=== PATIENT | female | born 1995 | race Caucasian/White ===

== ENCOUNTER → 2016-10-30 | Outpatient (REF) | payer OTHER | LOC: M LAB REF 19:00 | PROVIDERS: ATTEND Physician Assistant | DX: J02.9 Acute pharyngitis, unspecified (principal); R05 Cough ==

== ENCOUNTER → 2019-01-26 | Outpatient (REF) | payer OTHER | LOC: M LAB REF 14:56 | PROVIDERS: ATTEND Physician Assistant | DX: J02.9 Acute pharyngitis, unspecified (principal) ==

== ENCOUNTER → 2019-06-05 | Outpatient (REF) | payer OTHER ==
[2019-06-05 15:04] LABS: INFLUENZA A AMPLIFICATION NEGATIVE (NEGATIVE); INFLUENZA B AMPLIFICATION POSITIVE (NEGATIVE)
== END ==
LOC: M LAB REF 12:51
PROVIDERS: ATTEND Physician Assistant
DX: J11.1 Influenza due to unidentified influenza virus with other respiratory manifestations (principal)

== ENCOUNTER → 2020-08-24 | Outpatient (CLI) | payer OTHER ==
[2020-08-24 15:51] LABS: HEMATOCRIT 38.9 % (36.0-47.0); HEMOGLOBIN 11.9 g/dl (12.0-15.5); MEAN CORPUSCULAR HEMOGLOBIN 25.4 pg (27.0-33.0); MEAN CORPUSCULAR HGB CONC 30.6 g/dl (32.0-36.5); MEAN CORPUSCULAR VOLUME 82.9 fl (80.0-96.0); PLATELET COUNT, AUTOMATED 507 10^3/uL (150-450); RED BLOOD COUNT 4.69 10^6/uL (4.00-5.40); WHITE BLOOD COUNT 5.1 10^3/uL (4.0-10.0)
[2020-08-24 16:19] LABS: ALBUMIN 3.3 GM/DL (3.2-5.2); ALT/SGPT 15 U/L (12-78); BILIRUBIN,TOTAL 0.2 MG/DL (0.2-1.0); BLOOD UREA NITROGEN 16 MG/DL (7-18); CALCIUM LEVEL 9.3 MG/DL (8.5-10.1); CARBON DIOXIDE LEVEL 31 MEQ/L (21-32); CHLORIDE LEVEL 102 MEQ/L (98-107); CREATININE FOR GFR 0.64 MG/DL (0.55-1.30); GLOMERULAR FILTRATION RATE > 60.0 (>60); GLUCOSE, FASTING 92 MG/DL (70-100); POTASSIUM SERUM 4.1 MEQ/L (3.5-5.1); SODIUM LEVEL 138 MEQ/L (136-145); TOTAL PROTEIN 7.1 GM/DL (6.4-8.2)
[2020-08-24 16:41] LABS: ERYTHROCYTE SEDIMENTATION RATE 37 mm/hr (0-20)
== END ==
LOC: M WUC 11:49
PROVIDERS: ATTEND Internal Medicine Gastroenterology
DX: K50.90 Crohn's disease, unspecified, without complications (principal); D64.9 Anemia, unspecified

== ENCOUNTER → 2020-09-10 | Outpatient (CLI) | payer OTHER ==
[~2020-09-10] MED LIST: GASTROGRAFIN SOLUTION 30ML (Q9963) As Ordered ONE
--- NOTE | 2020-09-10 16:36 | REP ---
INDICATION: CROHN'S COMPARISON: None TECHNIQUE: Axial noncontrast images from the lung bases to the pubic symphysis with coronal and sagittal reformations. Oral contrast administered prior to imaging. This CT examination was performed using the following dose reduction techniques: Automated exposure control, adjustment of mA and/or kv according to the patient's size, and use of iterative reconstruction technique. FINDINGS: Right lower quadrant demonstrates mucosal thickening and irregularity involving the distal and terminal ileum. The base of the appendix is fluid-filled and distended extending cranially towards a 5 cm irregular soft tissue/phlegmonous collection with surrounding inflammatory stranding most suspicious for recent appendicitis and appendiceal abscess formation (series 201; images 85-110). These findings are also inseparable from the right adnexa which may be secondarily involved and less likely primary focus of pathology. Remainder of the small and large bowel is grossly unremarkable. Liver, spleen, pancreas, gallbladder, bilateral adrenal glands and kidneys are normal by noncontrast evaluation. Further evaluation of the pelvis demonstrates normal bladder and age-appropriate uterus/left adnexa. No ascites. No free air. No definite adenopathy. Musculoskeletal structures are intact. Lung bases are clear. IMPRESSION: 1. Pathologic findings in the right lower quadrant consistent with Crohn's disease of the distal/terminal ileum and suspected recent appendicitis with appendiceal abscess formation. 2. Right adnexa is inseparable from the above-mentioned findings. <Electronically signed by Tobi Francisco > 09/10/20 [id number]
== END ==
LOC: M RAD 08:51
PROVIDERS: ATTEND Internal Medicine Gastroenterology
DX: D64.9 Anemia, unspecified (principal); R10.32 Left lower quadrant pain; R10.13 Epigastric pain; K50.10 Crohn's disease of large intestine without complications; K60.2 Anal fissure, unspecified; K62.89 Other specified diseases of anus and rectum; Z31.69 Encounter for other general counseling and advice on procreation

== ENCOUNTER → 2020-10-19 | Outpatient (CLI) | payer OTHER | LOC: M LAB 16:01 | PROVIDERS: ATTEND Registered Nurse | DX: R19.7 Diarrhea, unspecified (principal) ==

== ENCOUNTER → 2020-10-20 | Outpatient (REF) | payer OTHER ==
[2020-10-21 18:48] LABS: CLOSTRIDIUM DIFFICILE PCR NEGATIVE (NEGATIVE)
== END ==
LOC: M LAB REF 15:30
PROVIDERS: ATTEND Registered Nurse
DX: R19.7 Diarrhea, unspecified (principal)

== ENCOUNTER 2020-12-29 09:48 | Outpatient (CLI) | payer OTHER ==
[~2020-12-29] VITALS: Ht 157.5 cm; Wt 57.0 kg
[2020-12-29] VITALS (9 sets, daily range): BP systolic 95–112; BP diastolic 54–72
[~2020-12-29 09:48] MED LIST changes: +ACETAMINOPHEN 650MG PO PRIOR TO INFUSION PO ONE; -GASTROGRAFIN SOLUTION 30ML (Q9963) As Ordered ONE; +INFLIXIMAB ABDA IV ONE; +NS 1,000 ML IV SCH; +NS IV ONE
== END 2020-12-29 13:10 | disposition home or self-care (01) ==
LOC: M INFU 09:48
PROVIDERS: ATTEND Internal Medicine Gastroenterology
DX: K50.90 Crohn's disease, unspecified, without complications (principal)

== ENCOUNTER 2021-01-11 07:20 | Outpatient (CLI) | payer OTHER ==
[~2021-01-11] VITALS: Ht 157.5 cm; Wt 57.0 kg
[2021-01-11] VITALS (8 sets, daily range): BP systolic 100–118; BP diastolic 59–70
== END 2021-01-11 10:15 | disposition home or self-care (01) ==
LOC: M INFU 07:20
PROVIDERS: ATTEND Internal Medicine Gastroenterology
DX: K50.90 Crohn's disease, unspecified, without complications (principal)

== ENCOUNTER 2021-02-09 07:45 | Outpatient (CLI) | payer OTHER ==
[~2021-02-09] VITALS: Ht 157.5 cm; Wt 57.0 kg
[2021-02-09 07:50] VITALS: BP 118/67
[2021-02-09 09:00] VITALS: BP 100/65
[2021-02-09 09:30] VITALS: BP 99/55
[2021-02-09 10:15] VITALS: BP 108/61
[2021-02-09 10:53] VITALS: BP 104/61
== END 2021-02-09 11:00 | disposition home or self-care (01) ==
LOC: M INFU 07:45
PROVIDERS: ATTEND Internal Medicine Gastroenterology
DX: K50.90 Crohn's disease, unspecified, without complications (principal)

== ENCOUNTER → 2021-02-17 | Outpatient (CLI) | payer OTHER ==
[2021-02-17 13:04] LABS: APPEARANCE, URINE HAZY (CLEAR); BACTERIA, URINE AUTO NEGATIVE (NEGATIVE); BILIRUBIN, URINE AUTO NEGATIVE (NEGATIVE); BLOOD, URINE BLOOD NEGATIVE (NEGATIVE); COLOR, URINE YELLOW (YELLOW); GLUCOSE, URINE (UA) AUTO NEGATIVE (NEGATIVE); KETONE, URINE AUTO NEGATIVE (NEGATIVE); LEUKOCYTE ESTERASE, URINE AUTO NEGATIVE (NEGATIVE); MUCUS, URINE SMALL (NEGATIVE); NITRITE, URINE AUTO NEGATIVE (NEGATIVE); PROTEIN, URINE AUTO NEGATIVE (NEGATIVE); RBC, URINE AUTO 0 /HPF (0-3); SPECIFIC GRAVITY URINE AUTO 1.026 (1.002-1.035); SQUAMOUS EPITHELIAL CELL UR AU 3 /HPF (0-6); UROBILINOGEN, URINE AUTO 0.2 mg/dL (0.0-2.0); WBC, URINE AUTO 0 /HPF (0-3)
== END ==
LOC: M LAB 11:45
PROVIDERS: ATTEND Surgery
DX: N39.0 Urinary tract infection, site not specified (principal)

== ENCOUNTER 2021-04-05 07:15 | Outpatient (CLI) | payer OTHER ==
[~2021-04-05] VITALS: Ht 157.5 cm; Wt 58.1 kg
[2021-04-05 07:25] VITALS: BP 121/70
[2021-04-05 08:30] VITALS: BP 115/69
[2021-04-05 09:20] VITALS: BP 122/66
[2021-04-05 09:24] VITALS: BP 122/66
== END 2021-04-05 09:20 | disposition home or self-care (01) ==
LOC: M INFU 07:15
PROVIDERS: ATTEND Internal Medicine Gastroenterology
DX: K50.90 Crohn's disease, unspecified, without complications (principal)

== ENCOUNTER 2021-05-31 07:16 | Outpatient (CLI) | payer OTHER ==
[~2021-05-31] VITALS: Ht 157.5 cm; Wt 57.0 kg
[2021-05-31 08:45] VITALS: BP 124/90
== END 2021-05-31 08:55 | disposition home or self-care (01) ==
LOC: M INFU 07:16
PROVIDERS: ATTEND Internal Medicine Gastroenterology
DX: K50.90 Crohn's disease, unspecified, without complications (principal)
CPT/HCPCS: 96413; Q5103

== ENCOUNTER → 2021-06-02 | Outpatient (REF) | payer OTHER | LOC: M LAB REF 11:49 | PROVIDERS: ATTEND Internal Medicine Gastroenterology | DX: K50.10 Crohn's disease of large intestine without complications (principal); K50.90 Crohn's disease, unspecified, without complications ==

== ENCOUNTER 2021-07-27 13:15 | Outpatient (CLI) | payer OTHER ==
[~2021-07-27] VITALS: Ht 165.1 cm; Wt 57.0 kg
[~2021-07-27 13:15] MED LIST changes: -INFLIXIMAB ABDA IV ONE; +INFLIXIMAB BIOSIMILAR 300 MG in NS 220 ML IV ONE; -NS IV ONE
[2021-07-27] MEDS ORDERED: ACETAMINOPHEN 650MG PO PRIOR TO INFUSION PO ONE (13:30)
[2021-07-27] MEDS ORDERED: INFLIXIMAB BIOSIMILAR 300 MG in NS 220 ML IV ONE (13:30)
[2021-07-27] MEDS ORDERED: NS 1,000 ML IV SCH (13:30)
[2021-07-27 13:32] VITALS: BP 131/72
[2021-07-27] MEDS ORDERED: PENT500C PO (13:46)
[2021-07-27 14:05] VITALS: BP 109/71
[2021-07-27 14:55] VITALS: BP 109/68
== END 2021-07-27 15:00 | disposition home or self-care (01) ==
LOC: M INFU 13:15
PROVIDERS: ATTEND Internal Medicine Gastroenterology
DX: K50.90 Crohn's disease, unspecified, without complications (principal)
CPT/HCPCS: 96413; Q5103

== ENCOUNTER 2021-09-24 07:07 | Outpatient (CLI) | payer OTHER ==
[~2021-09-24] VITALS: Ht 165.1 cm; Wt 57.0 kg
[~2021-09-24 07:07] MED LIST changes: +PENT500C PO
[2021-09-24 07:32] VITALS: BP 126/75
[2021-09-24 07:33] VITALS: BP 126/75
[2021-09-24 07:48] LABS: HEMATOCRIT 36.9 % (36.0-47.0); HEMOGLOBIN 12.4 g/dl (12.0-15.5); MEAN CORPUSCULAR HEMOGLOBIN 28.9 pg (27.0-33.0); MEAN CORPUSCULAR HGB CONC 33.6 g/dl (32.0-36.5); PLATELET COUNT, AUTOMATED 281 10^3/uL (150-450); RED BLOOD COUNT 4.29 10^6/uL (4.00-5.40); WHITE BLOOD COUNT 4.6 10^3/uL (4.0-10.0)
[2021-09-24 08:13] LABS: ERYTHROCYTE SEDIMENTATION RATE 11 mm/hr (0-20)
[2021-09-24 08:15] VITALS: BP 118/72
[2021-09-24 08:22] LABS: ALBUMIN 3.7 GM/DL (3.2-5.2); ALT/SGPT 14 U/L (12-78); BILIRUBIN,TOTAL 0.4 MG/DL (0.2-1.0); BLOOD UREA NITROGEN 13 MG/DL (7-18); CALCIUM LEVEL 9.3 MG/DL (8.5-10.1); CARBON DIOXIDE LEVEL 27 MEQ/L (21-32); CHLORIDE LEVEL 109 MEQ/L (98-107); CREATININE FOR GFR 0.66 MG/DL (0.55-1.30); GLOMERULAR FILTRATION RATE > 60.0 (>60); GLUCOSE, FASTING 87 MG/DL (70-100); POTASSIUM SERUM 4.1 MEQ/L (3.5-5.1); SODIUM LEVEL 141 MEQ/L (136-145); TOTAL PROTEIN 7.1 GM/DL (6.4-8.2)
[2021-09-24 09:14] VITALS: BP 122/69
== END 2021-09-24 09:15 | disposition home or self-care (01) ==
LOC: M INFU 07:07
PROVIDERS: ATTEND Internal Medicine Gastroenterology
DX: K50.90 Crohn's disease, unspecified, without complications (principal); K59.00 Constipation, unspecified
CPT/HCPCS: 36415; 80053; 85027; 85652; 86140; 96413; Q5103

== ENCOUNTER → 2021-11-19 | Outpatient (CLI) | payer OTHER, SELFPAY ==
[~2021-11-19] VITALS: Ht 157.5 cm; Wt 59.0 kg
[~2021-11-19] MED LIST changes: -ACETAMINOPHEN 650MG PO PRIOR TO INFUSION PO ONE
[2021-11-19 07:05] VITALS: BP 110/77
[2021-11-19 08:25] VITALS: BP 109/68
[2021-11-19 09:20] VITALS: BP 105/64
== END ==
LOC: M INFU 07:31
PROVIDERS: ATTEND Internal Medicine Gastroenterology
DX: K50.90 Crohn's disease, unspecified, without complications (principal)
CPT/HCPCS: 96413; Q5103

== ENCOUNTER 2022-01-14 13:00 | Outpatient (CLI) | payer OTHER ==
[2022-01-14 13:00] VITALS: BP 127/77
[~2022-01-14 13:00] MED LIST changes: +ACETAMINOPHEN 650MG PO PRIOR TO INFUSION PO ONE
[2022-01-14 13:33] LABS: HEMATOCRIT 37.3 % (36.0-47.0); HEMOGLOBIN 12.6 g/dl (12.0-15.5); MEAN CORPUSCULAR HGB CONC 33.8 g/dl (32.0-36.5); MEAN CORPUSCULAR VOLUME 85.9 fl (80.0-96.0); PLATELET COUNT, AUTOMATED 379 10^3/uL (150-450); RED BLOOD COUNT 4.34 10^6/uL (4.00-5.40); WHITE BLOOD COUNT 5.8 10^3/uL (4.0-10.0)
[2022-01-14 13:45] VITALS: BP 104/68
[2022-01-14 13:58] LABS: ERYTHROCYTE SEDIMENTATION RATE 13 mm/hr (0-20)
[2022-01-14 14:15] LABS: ALBUMIN 3.9 GM/DL (3.2-5.2); ALT/SGPT 15 U/L (12-78); BILIRUBIN,TOTAL 0.2 MG/DL (0.2-1.0); BLOOD UREA NITROGEN 17 MG/DL (7-18); CALCIUM LEVEL 9.4 MG/DL (8.5-10.1); CARBON DIOXIDE LEVEL 29 MEQ/L (21-32); CHLORIDE LEVEL 102 MEQ/L (98-107); CREATININE FOR GFR 0.64 MG/DL (0.55-1.30); GLOMERULAR FILTRATION RATE > 60.0 (>60); GLUCOSE, FASTING 86 MG/DL (70-100); POTASSIUM SERUM 3.8 MEQ/L (3.5-5.1); SODIUM LEVEL 136 MEQ/L (136-145); TOTAL PROTEIN 7.6 GM/DL (6.4-8.2)
[2022-01-14 14:38] VITALS: BP 122/89
== END 2022-01-14 14:40 | disposition home or self-care (01) ==
LOC: M INFU 13:00
PROVIDERS: ATTEND Internal Medicine Gastroenterology
DX: K50.90 Crohn's disease, unspecified, without complications (principal)
CPT/HCPCS: 36415; 80053; 85027; 85652; 86140; 96413; Q5103

== ENCOUNTER → 2022-04-09 | Outpatient (REF) | payer OTHER ==
[~2022-04-09] MED LIST changes: -ACETAMINOPHEN 650MG PO PRIOR TO INFUSION PO ONE; -INFLIXIMAB BIOSIMILAR 300 MG in NS 220 ML IV ONE; -NS 1,000 ML IV SCH
== END ==
LOC: M LAB REF 19:00
PROVIDERS: ATTEND Physician Assistant
DX: R30.0 Dysuria (principal)

== ENCOUNTER → 2022-04-29 | Outpatient (REF) | payer OTHER ==
[2022-04-29 14:45] LABS: APPEARANCE, URINE MANUAL CLEAR (CLEAR); COLOR, URINE MANUAL LT YELLOW (YELLOW)
[2022-04-29 14:46] LABS: BILIRUBIN, URINE MANUAL NEGATIVE (NEGATIVE); BLOOD URINE MANUAL POSITIVE (NEGATIVE); GLUCOSE, URINE (UA) MANUAL NEGATIVE (NEGATIVE); KETONE, URINE MANUAL NEGATIVE (NEGATIVE); LEUKOCYTE ESTERASE, URINE MAN NEGATIVE (NEGATIVE); NITRITE, URINE MANUAL NEGATIVE (NEGATIVE); PROTEIN, URINE MANUAL NEGATIVE (NEGATIVE); UROBILINOGEN, URINE MANUAL NORMAL (NORMAL)
[2022-04-29 15:06] LABS: BACTERIA, URINE SMALL AMOUNT; HYALINE CAST, URINE NONE SEEN /lpf (0-1); SQUAMOUS EPITHELIAL CELL URINE SMALL AMOUNT /hpf (SMALL AMT)
== END ==
LOC: M SFHCPLAZ 12:58
PROVIDERS: ATTEND Nurse Practitioner Family
DX: N39.0 Urinary tract infection, site not specified (principal)

== ENCOUNTER → 2022-06-16 | Outpatient (CLI) | payer OTHER ==
[~2022-06-16] VITALS: Ht 157.5 cm; Wt 63.6 kg
[~2022-06-16] MED LIST changes: +ACETAMINOPHEN 650MG PO PRIOR TO INFUSION PO ONE; +INFLIXIMAB BIOSIMILAR 300 MG in NS 220 ML IV ONE; +NS 1,000 ML IV SCH
[2022-06-16 08:25] VITALS: BP 118/71
[2022-06-16 10:29] VITALS: BP 111/63
== END ==
LOC: M INFU 08:17
PROVIDERS: ATTEND Internal Medicine Gastroenterology
DX: K50.90 Crohn's disease, unspecified, without complications (principal)

== ENCOUNTER 2022-08-15 13:31 | Outpatient (CLI) | payer OTHER ==
[2022-08-15] MEDS ORDERED: NS 1,000 ML IV SCH (13:40)
[2022-08-15 13:47] VITALS: BP 120/73
[2022-08-15] MEDS ORDERED: INFLIXIMAB BIOSIMILAR 300 MG in NS 220 ML IV ONE (14:00)
[2022-08-15] MEDS ORDERED: ACETAMINOPHEN 650MG PO PRIOR TO INFUSION PO ONE (14:00)
[2022-08-15 15:05] VITALS: BP 104/67
== END 2022-08-15 15:15 | disposition home or self-care (01) ==
LOC: M INFU 13:31
PROVIDERS: ATTEND Internal Medicine Gastroenterology
DX: K50.90 Crohn's disease, unspecified, without complications (principal)

== ENCOUNTER → 2022-08-25 | Outpatient (CLI) | payer OTHER ==
[~2022-08-25] MED LIST changes: -ACETAMINOPHEN 650MG PO PRIOR TO INFUSION PO ONE; -INFLIXIMAB BIOSIMILAR 300 MG in NS 220 ML IV ONE; -NS 1,000 ML IV SCH
[2022-08-25 16:12] LABS: HEMATOCRIT 39.5 % (36.0-47.0); MEAN CORPUSCULAR HEMOGLOBIN 28.2 pg (27.0-33.0); MEAN CORPUSCULAR HGB CONC 32.9 g/dl (32.0-36.5); MEAN CORPUSCULAR VOLUME 85.7 fl (80.0-96.0); PLATELET COUNT, AUTOMATED 375 10^3/uL (150-450); RED BLOOD COUNT 4.61 10^6/uL (4.00-5.40); WHITE BLOOD COUNT 5.5 10^3/uL (4.0-10.0)
[2022-08-25 16:29] LABS: ALBUMIN 3.8 G/DL (3.2-5.2); ALKALINE PHOSPHATASE 71 U/L (46-116); ALT/SGPT 10 U/L (7.0-40); AST/SGOT 14 U/L (<34); BILIRUBIN,TOTAL 0.3 MG/DL (0.3-1.2); BLOOD UREA NITROGEN 17 MG/DL (9-23); CARBON DIOXIDE LEVEL 30 MMOL/L (20-31); CHLORIDE LEVEL 103 MMOL/L (98-107); CREATININE FOR GFR 0.64 MG/DL (0.55-1.30); GLOMERULAR FILTRATION RATE > 60.0 (>60); GLUCOSE, FASTING 90 MG/DL (60-100); POTASSIUM SERUM 4.2 MMOL/L (3.5-5.1); SODIUM LEVEL 138 MMOL/L (136-145); TOTAL PROTEIN 7.3 G/DL (5.7-8.2)
[2022-08-25 16:30] LABS: C REACTIVE PROTEIN QUANTITATIV < 0.40 MG/DL (<1.0)
[2022-08-25 16:33] LABS: ERYTHROCYTE SEDIMENTATION RATE 21 mm/hr (0-20)
== END ==
LOC: M LAB 15:40
PROVIDERS: ATTEND Nurse Practitioner Family
DX: K50.90 Crohn's disease, unspecified, without complications (principal); K21.9 Gastro-esophageal reflux disease without esophagitis

== ENCOUNTER 2022-10-12 13:25 | Outpatient (CLI) | payer OTHER ==
[~2022-10-12] VITALS: Ht 157.5 cm; Wt 63.0 kg
[~2022-10-12 13:25] MED LIST changes: +ACETAMINOPHEN 650MG PO PRIOR TO INFUSION PO ONE; +INFLIXIMAB BIOSIMILAR 300 MG in NS 220 ML IV ONE; +NS 1,000 ML IV SCH
[2022-10-12] MEDS ORDERED: ACETAMINOPHEN TAB 650MG DOSE (2X325MG) PO ONE (13:30)
[2022-10-12] MEDS ORDERED: INFLIXIMAB BIOSIMILAR 300 MG in NS 220 ML IV ONE (13:30)
[2022-10-12] MEDS ORDERED: NS 1,000 ML IV SCH (13:30)
[2022-10-12 13:42] VITALS: BP 119/73; O2SAT 96
[2022-10-12 15:29] VITALS: BP 124/75; O2SAT 99
== END 2022-10-12 15:30 | disposition home or self-care (01) ==
LOC: M INFU 13:25
PROVIDERS: ATTEND Internal Medicine Gastroenterology
DX: K50.90 Crohn's disease, unspecified, without complications (principal)

== ENCOUNTER 2022-12-05 13:55 | Outpatient (CLI) | payer OTHER ==
[~2022-12-05] VITALS: Ht 157.5 cm; Wt 61.7 kg
[2022-12-05 13:55] VITALS: BP 104/72; O2SAT 96
[~2022-12-05 13:55] MED LIST changes: -ACETAMINOPHEN 650MG PO PRIOR TO INFUSION PO ONE; +CURRENT HEIGHT AND WEIGHT NEEDED ON PATIENT XX SCH; -INFLIXIMAB BIOSIMILAR 300 MG in NS 220 ML IV ONE; -NS 1,000 ML IV SCH
[2022-12-05] MEDS ORDERED: ACETAMINOPHEN 650MG PO PRIOR TO INFUSION PO ONE (14:00)
[2022-12-05] MEDS ORDERED: NS 1,000 ML IV SCH (14:00)
[2022-12-05] MEDS ORDERED: INFLIXIMAB BIOSIMILAR 300 MG in NS 220 ML IV ONE (14:15)
[2022-12-05 14:40] VITALS: BP 100/66; O2SAT 100
[2022-12-05 15:30] VITALS: BP 105/73; O2SAT 100
== END 2022-12-05 15:40 ==
LOC: M INFU 13:55
PROVIDERS: ATTEND Internal Medicine Gastroenterology
DX: K50.90 Crohn's disease, unspecified, without complications (principal)

== ENCOUNTER 2023-02-02 14:57 | Outpatient (CLI) | payer OTHER ==
[~2023-02-02] VITALS: Ht 157.5 cm; Wt 62.7 kg
[~2023-02-02 14:57] MED LIST changes: +ACETAMINOPHEN 650MG PO PRIOR TO INFUSION PO ONE; +INFLIXIMAB BIOSIMILAR 300 MG in NS 220 ML IV ONE; +NS 1,000 ML IV SCH
[2023-02-02 15:15] VITALS: BP 109/66; TEMP 98.2; O2SAT 100
[2023-02-02] MEDS ORDERED: NS 1,000 ML IV SCH (15:15)
[2023-02-02] MEDS ORDERED: INFLIXIMAB BIOSIMILAR 300 MG in NS 220 ML IV ONE (15:15)
[2023-02-02] MEDS ORDERED: ACETAMINOPHEN 650MG PO PRIOR TO INFUSION PO ONE (15:15)
[2023-02-02 16:00] VITALS: BP 107/63; TEMP 97.8; O2SAT 100
[2023-02-02 16:47] VITALS: BP 105/60; TEMP 98.2; O2SAT 99
== END 2023-02-02 16:50 ==
LOC: M INFU 14:57
PROVIDERS: ATTEND Internal Medicine Gastroenterology
DX: K50.90 Crohn's disease, unspecified, without complications (principal)

== ENCOUNTER → 2023-03-09 | Outpatient (CLI) | payer OTHER ==
[~2023-03-09] MED LIST changes: -ACETAMINOPHEN 650MG PO PRIOR TO INFUSION PO ONE; -CURRENT HEIGHT AND WEIGHT NEEDED ON PATIENT XX SCH; -INFLIXIMAB BIOSIMILAR 300 MG in NS 220 ML IV ONE; -NS 1,000 ML IV SCH
[2023-03-09 16:03] LABS: HEMATOCRIT 36.1 % (36.0-47.0); HEMOGLOBIN 12.1 g/dl (12.0-15.5); MEAN CORPUSCULAR HEMOGLOBIN 29.1 pg (27.0-33.0); MEAN CORPUSCULAR HGB CONC 33.5 g/dl (32.0-36.5); MEAN CORPUSCULAR VOLUME 86.8 fl (80.0-96.0); PLATELET COUNT, AUTOMATED 357 10^3/uL (150-450); RED BLOOD COUNT 4.16 10^6/uL (4.00-5.40); WHITE BLOOD COUNT 8.3 10^3/uL (4.0-10.0)
[2023-03-09 17:08] LABS: HIV 1&2 SCREEN NEGATIVE (NEGATIVE)
[2023-03-09 17:16] LABS: HEPATITIS C VIRUS ABY INDEX 0.04 INDEX (<0.8)
[2023-03-09 17:32] LABS: CHLAMYDIA DNA AMPLIFICATION NEGATIVE (NEGATIVE); GC DNA AMPLIFICATION NEGATIVE (NEGATIVE)
== END ==
LOC: M PLALAB 13:32
PROVIDERS: ATTEND Specialist
DX: Z34.01 Encounter for supervision of normal first pregnancy, first trimester (principal)

== ENCOUNTER 2023-03-18 08:37 | Emergency (ER) | payer OTHER ==
[~2023-03-18] VITALS: Ht 157.5 cm; Wt 63.8 kg
[2023-03-18] MEDS ORDERED: INFL100I (08:53)
[2023-03-18] MEDS ORDERED: NS 1,000 ML IV ONE (09:40)
[2023-03-18] MEDS ORDERED: ONDANSETRON 4MG 2ML VIAL IV ONE (09:45)
[2023-03-18] MEDS ORDERED: MORPHINE 4 MG/ML 1ML VIAL IV ONE (09:45)
[2023-03-18 10:19] LABS: BASO % 0.2 % (0.0-1.0); HEMATOCRIT 33.9 % (36.0-47.0); HEMOGLOBIN 11.9 g/dl (12.0-15.5); LYMPH # 0.8 10^3/uL (1.5-5.0); LYMPH % 7.3 % (24.0-44.0); MEAN CORPUSCULAR HEMOGLOBIN 29.2 pg (27.0-33.0); MEAN CORPUSCULAR HGB CONC 35.1 g/dl (32.0-36.5); MEAN CORPUSCULAR VOLUME 83.3 fl (80.0-96.0); MONO # 0.4 10^3/uL (0.0-0.8); MONO % 3.9 % (2.0-8.0); NEUTROPHILS # 9.1 10^3/uL (1.5-8.5); NEUTROPHILS % 88.3 % (36.0-66.0); PLATELET COUNT, AUTOMATED 333 10^3/uL (150-450); RED BLOOD COUNT 4.07 10^6/uL (4.00-5.40); WHITE BLOOD COUNT 10.3 10^3/uL (4.0-10.0)
[2023-03-18 10:30] LABS: ERYTHROCYTE SEDIMENTATION RATE 49 mm/hr (0-20)
[2023-03-18 10:40] LABS: LIPASE 28 U/L (12-53)
[2023-03-18 10:42] LABS: ALKALINE PHOSPHATASE 71 U/L (46-116); ALT/SGPT 21 U/L (7.0-40); AST/SGOT 20 U/L (<34); BILIRUBIN,DIRECT < 0.1 MG/DL (<0.4); BILIRUBIN,TOTAL 0.4 MG/DL (0.3-1.2); BLOOD UREA NITROGEN 8 MG/DL (9-23); CALCIUM LEVEL 8.9 MG/DL (8.5-10.1); CARBON DIOXIDE LEVEL 24 MMOL/L (20-31); CHLORIDE LEVEL 102 MMOL/L (98-107); CREATININE FOR GFR 0.43 MG/DL (0.55-1.30); GLOMERULAR FILTRATION RATE > 60.0 (>60); GLUCOSE, FASTING 96 MG/DL (60-100); POTASSIUM SERUM 3.9 MMOL/L (3.5-5.1); SODIUM LEVEL 134 MMOL/L (136-145); TOTAL PROTEIN 6.6 G/DL (5.7-8.2)
[2023-03-18 12:24] VITALS: BP 125/74; TEMP 99.1; O2SAT 97
== END 2023-03-18 12:37 | disposition home or self-care (01) ==
LOC: M ED 08:37
DX: O99.612 Diseases of the digestive system complicating pregnancy, second trimester (principal)
CPT/HCPCS: 76801; 80048; 80076; 83605; 83690; 85025; 85652; 96361; 96374; 99284; J2405

== ENCOUNTER 2023-03-27 14:30 | Outpatient (CLI) | payer OTHER ==
[~2023-03-27] VITALS: Ht 157.5 cm; Wt 65.5 kg
[~2023-03-27 14:30] MED LIST changes: +INFL100I
[2023-03-27 14:50] VITALS: BP 126/67; O2SAT 97
[2023-03-27 15:26] LABS: HEMATOCRIT 32.1 % (36.0-47.0); HEMOGLOBIN 10.8 g/dl (12.0-15.5); MEAN CORPUSCULAR HGB CONC 33.6 g/dl (32.0-36.5); MEAN CORPUSCULAR VOLUME 86.1 fl (80.0-96.0); PLATELET COUNT, AUTOMATED 337 10^3/uL (150-450); RED BLOOD COUNT 3.73 10^6/uL (4.00-5.40); WHITE BLOOD COUNT 8.3 10^3/uL (4.0-10.0)
[2023-03-27 15:31] VITALS: BP 126/67; TEMP 36.6; O2SAT 97
[2023-03-27 15:43] LABS: ERYTHROCYTE SEDIMENTATION RATE 47 mm/hr (0-20)
[2023-03-27] MEDS ORDERED: NS 1,000 ML IV SCH (15:45)
[2023-03-27] MEDS ORDERED: INFLIXIMAB BIOSIMILAR 300 MG in NS 220 ML IV ONE (15:45)
[2023-03-27] MEDS ORDERED: ACETAMINOPHEN 650MG PO PRIOR TO INFUSION PO ONE (15:45)
[2023-03-27 15:54] LABS: ALKALINE PHOSPHATASE 62 U/L (46-116); ALT/SGPT 30 U/L (7.0-40); AST/SGOT 19 U/L (<34); BILIRUBIN,TOTAL 0.2 MG/DL (0.3-1.2); BLOOD UREA NITROGEN 14 MG/DL (9-23); CARBON DIOXIDE LEVEL 26 MMOL/L (20-31); CHLORIDE LEVEL 104 MMOL/L (98-107); CREATININE FOR GFR 0.53 MG/DL (0.55-1.30); GLOMERULAR FILTRATION RATE > 60.0 (>60); GLUCOSE, FASTING 93 MG/DL (60-100); POTASSIUM SERUM 3.8 MMOL/L (3.5-5.1); SODIUM LEVEL 138 MMOL/L (136-145); TOTAL PROTEIN 6.4 G/DL (5.7-8.2)
[2023-03-27 17:15] VITALS: BP 120/69; O2SAT 97
== END 2023-03-27 17:15 ==
LOC: M INFU 14:30
PROVIDERS: ATTEND Internal Medicine Gastroenterology
DX: K50.90 Crohn's disease, unspecified, without complications (principal)

== ENCOUNTER 2023-05-04 15:50 | Inpatient (IN) | payer OTHER ==
[~2023-05-04] VITALS: Ht 157.5 cm; Wt 67.5 kg
[2023-05-04 16:14] VITALS: BP 128/74
[2023-05-04] MEDS ORDERED: MIRA1POW3 PO (16:30)
[2023-05-04] MEDS ORDERED: HOME MED LIST COMPLETE! XX SCH (16:30)
[2023-05-04] MEDS ORDERED: HYOS0.1258 PO (16:30)
[2023-05-04] MEDS ORDERED: DICY-61 PO (16:30)
[2023-05-04] MEDS ORDERED: PRENTAB9 PO (16:30)
[2023-05-04 17:41] LABS: BASO % 0.1 % (0.0-1.0); EOS % 0.2 % (0.0-3.0); HEMOGLOBIN 10.3 g/dl (12.0-15.5); LYMPH # 0.8 10^3/uL (1.5-5.0); LYMPH % 6.7 % (24.0-44.0); MEAN CORPUSCULAR HEMOGLOBIN 28.9 pg (27.0-33.0); MEAN CORPUSCULAR HGB CONC 33.2 g/dl (32.0-36.5); MEAN CORPUSCULAR VOLUME 87.1 fl (80.0-96.0); MONO # 0.8 10^3/uL (0.0-0.8); MONO % 6.4 % (2.0-8.0); NEUTROPHILS # 10.2 10^3/uL (1.5-8.5); NEUTROPHILS % 86.2 % (36.0-66.0); PLATELET COUNT, AUTOMATED 351 10^3/uL (150-450); RED BLOOD COUNT 3.56 10^6/uL (4.00-5.40); WHITE BLOOD COUNT 11.8 10^3/uL (4.0-10.0)
[2023-05-04 17:41] LABS: AMORPHOUS SEDIMENT SMALL (NEGATIVE); APPEARANCE, URINE CLEAR (CLEAR); BACTERIA, URINE AUTO 1+ (NEGATIVE); BILIRUBIN, URINE AUTO NEGATIVE (NEGATIVE); BLOOD, URINE BLOOD NEGATIVE (NEGATIVE); COLOR, URINE YELLOW (YELLOW); GLUCOSE, URINE (UA) AUTO NEGATIVE (NEGATIVE); KETONE, URINE AUTO 2+ mg/dL (NEGATIVE); LEUKOCYTE ESTERASE, URINE AUTO NEGATIVE (NEGATIVE); NITRITE, URINE AUTO NEGATIVE (NEGATIVE); PROTEIN, URINE AUTO NEGATIVE (NEGATIVE); RBC, URINE AUTO 0 /HPF (0-3); SPECIFIC GRAVITY URINE AUTO 1.011 (1.002-1.035); SQUAMOUS EPITHELIAL CELL UR AU 1 /HPF (0-6); UROBILINOGEN, URINE AUTO 0.2 mg/dL (0.0-2.0); WBC, URINE AUTO 1 /HPF (0-3)
[2023-05-04 18:02] LABS: LIPASE 31 U/L (12-53)
[2023-05-04 18:05] LABS: ALBUMIN 2.7 G/DL (3.2-5.2); ALKALINE PHOSPHATASE 92 U/L (46-116); ALT/SGPT 19 U/L (7.0-40); AST/SGOT 14 U/L (<34); BILIRUBIN,TOTAL 0.5 MG/DL (0.3-1.2); BLOOD UREA NITROGEN 7 MG/DL (9-23); CALCIUM LEVEL 8.8 MG/DL (8.5-10.1); CARBON DIOXIDE LEVEL 26 MMOL/L (20-31); CHLORIDE LEVEL 102 MMOL/L (98-107); CREATININE FOR GFR 0.56 MG/DL (0.55-1.30); GLOMERULAR FILTRATION RATE > 60.0 (>60); GLUCOSE, FASTING 87 MG/DL (60-100); SODIUM LEVEL 135 MMOL/L (136-145); TOTAL PROTEIN 6.4 G/DL (5.7-8.2)
[2023-05-04 18:15] VITALS: BP 119/69
[2023-05-04] MEDS ORDERED: KETOROLAC 30 MG/ML 1ML VIAL IV ONE (21:00)
[2023-05-04 21:50] VITALS: BP 119/69; TEMP 97.4
[2023-05-04 22:00] VITALS: BP 100/57; O2SAT 97
[2023-05-04] MEDS ORDERED: ACETAMINOPHEN *IV* 1,000 MG in IV 1 EA IV PRN (22:30)
[2023-05-05] MEDS: LR 1,000 ML IV SCH ×2 (03:42→06:07)
[2023-05-05 05:56] VITALS: BP 102/50; O2SAT 97
[2023-05-05 06:54] LABS: HEMATOCRIT 28.5 % (36.0-47.0); HEMOGLOBIN 9.6 g/dl (12.0-15.5); MEAN CORPUSCULAR HEMOGLOBIN 29.3 pg (27.0-33.0); MEAN CORPUSCULAR HGB CONC 33.7 g/dl (32.0-36.5); MEAN CORPUSCULAR VOLUME 86.9 fl (80.0-96.0); PLATELET COUNT, AUTOMATED 318 10^3/uL (150-450); RED BLOOD COUNT 3.28 10^6/uL (4.00-5.40)
[2023-05-05 07:36] LABS: ALBUMIN 2.2 G/DL (3.2-5.2); ALKALINE PHOSPHATASE 81 U/L (46-116); ALT/SGPT 16 U/L (7.0-40); AST/SGOT 13 U/L (<34); BILIRUBIN,TOTAL 0.3 MG/DL (0.3-1.2); BLOOD UREA NITROGEN 6 MG/DL (9-23); CALCIUM LEVEL 8.3 MG/DL (8.5-10.1); CARBON DIOXIDE LEVEL 26 MMOL/L (20-31); CHLORIDE LEVEL 108 MMOL/L (98-107); CREATININE FOR GFR 0.48 MG/DL (0.55-1.30); GLOMERULAR FILTRATION RATE > 60.0 (>60); GLUCOSE, FASTING 80 MG/DL (60-100); POTASSIUM SERUM 4.2 MMOL/L (3.5-5.1); SODIUM LEVEL 139 MMOL/L (136-145); TOTAL PROTEIN 5.4 G/DL (5.7-8.2)
[2023-05-05 10:09] VITALS: BP 100/62; O2SAT 96
[2023-05-05] MEDS ORDERED: ACETAMINOPHEN 500 MG TAB PO ONE (10:35)
== END 2023-05-05 13:37 | disposition home or self-care (01) | DRG 832 ==
LOC: M LDO 15:50 → M OBS 20:56
PROVIDERS: ADMIT Specialist; ATTEND Specialist
DX: O99.612 Diseases of the digestive system complicating pregnancy, second trimester (principal); K50.919 Crohn's disease, unspecified, with unspecified complications; Z79.899 Other long term (current) drug therapy; Z3A.20 20 weeks gestation of pregnancy

== ENCOUNTER → 2023-05-05 | Outpatient (REF) | payer OTHER ==
[~2023-05-05] MED LIST changes: +DICY-61 PO; +HYOS0.1258 PO; +MIRA1POW3 PO; +PRENTAB9 PO
== END ==
LOC: M SFHCWAGY 13:48
PROVIDERS: ATTEND Advanced Practice Midwife
DX: K50.90 Crohn's disease, unspecified, without complications (principal)

== ENCOUNTER → 2023-05-16 | Outpatient (CLI) | payer OTHER | LOC: M WHC 07:34 | PROVIDERS: ATTEND Specialist | DX: O32.1XX0 Maternal care for breech presentation, not applicable or unspecified (principal); Z3A.21 21 weeks gestation of pregnancy ==

== ENCOUNTER 2023-05-29 13:48 | Outpatient (CLI) | payer OTHER ==
[~2023-05-29] VITALS: Ht 157.5 cm; Wt 65.8 kg
[2023-05-29 14:30] VITALS: BP 131/72; O2SAT 97
[2023-05-29] MEDS ORDERED: ACETAMINOPHEN 650MG PO PRIOR TO INFUSION PO ONE (14:30)
[2023-05-29] MEDS ORDERED: INFLIXIMAB BIOSIMILAR 300 MG in NS 220 ML IV ONE (14:30)
[2023-05-29] MEDS ORDERED: NS 1,000 ML IV SCH (14:30)
[2023-05-29 15:40] VITALS: BP 107/60; O2SAT 97
[2023-05-29 16:25] VITALS: BP 117/71; TEMP 36.3; O2SAT 98
== END 2023-05-29 16:20 | disposition home or self-care (01) ==
LOC: M INFU 13:48
PROVIDERS: ATTEND Internal Medicine Gastroenterology
DX: K50.90 Crohn's disease, unspecified, without complications (principal)

== ENCOUNTER 2023-05-31 17:21 | Outpatient (CLI) | payer OTHER ==
[~2023-05-31] VITALS: Ht 157.5 cm; Wt 65.7 kg
[2023-05-31 17:39] VITALS: BP 112/63
[2023-05-31] MEDS ORDERED: PRED50TA PO (17:49)
[2023-05-31] MEDS ORDERED: CVS1CAP2 PO (17:49)
[2023-05-31] MEDS ORDERED: PREDPOW42 MC (17:49)
[2023-05-31] MEDS ORDERED: TUMS500C PO (17:49)
[2023-05-31] MEDS ORDERED: INFL100I IV (18:29)
[2023-05-31] MEDS ORDERED: PRED10TA2 (18:29)
== END 2023-05-31 18:05 | disposition home or self-care (01) ==
LOC: M LDO 17:21
PROVIDERS: ATTEND Advanced Practice Midwife
DX: O26.893 Other specified pregnancy related conditions, third trimester (principal); R10.10 Upper abdominal pain, unspecified; O99.612 Diseases of the digestive system complicating pregnancy, second trimester; K50.90 Crohn's disease, unspecified, without complications; Z3A.23 23 weeks gestation of pregnancy
CPT/HCPCS: 59025; G0463

== ENCOUNTER 2023-05-31 18:20 | Emergency (ER) | payer OTHER ==
[~2023-05-31] VITALS: Ht 157.5 cm; Wt 65.0 kg
[~2023-05-31 18:20] MED LIST changes: +CVS1CAP2 PO; +PRED50TA PO; +PREDPOW42 MC; +TUMS500C PO
[2023-05-31] MEDS ORDERED: INFL100I IV (18:29)
[2023-05-31] MEDS ORDERED: PRED10TA2 (18:29)
[2023-05-31] MEDS ORDERED: NS 1,000 ML IV ONE (18:45)
[2023-05-31 19:30] LABS: EOS % 0.3 % (0.0-3.0); HEMATOCRIT 28.3 % (36.0-47.0); HEMOGLOBIN 9.5 g/dl (12.0-15.5); LYMPH % 14.6 % (24.0-44.0); MEAN CORPUSCULAR HEMOGLOBIN 29.3 pg (27.0-33.0); MEAN CORPUSCULAR HGB CONC 33.6 g/dl (32.0-36.5); MEAN CORPUSCULAR VOLUME 87.3 fl (80.0-96.0); MONO # 0.6 10^3/uL (0.0-0.8); MONO % 8.2 % (2.0-8.0); NEUTROPHILS # 5.3 10^3/uL (1.5-8.5); NEUTROPHILS % 76.5 % (36.0-66.0); PLATELET COUNT, AUTOMATED 370 10^3/uL (150-450); RED BLOOD COUNT 3.24 10^6/uL (4.00-5.40); WHITE BLOOD COUNT 6.9 10^3/uL (4.0-10.0)
[2023-05-31 19:35] LABS: ERYTHROCYTE SEDIMENTATION RATE 92 mm/hr (0-20)
[2023-05-31 19:51] LABS: ALBUMIN 2.5 G/DL (3.2-5.2); ALKALINE PHOSPHATASE 137 U/L (46-116); ALT/SGPT 15 U/L (7.0-40); AST/SGOT 12 U/L (<34); BILIRUBIN,TOTAL 0.3 MG/DL (0.3-1.2); BLOOD UREA NITROGEN 8 MG/DL (9-23); CALCIUM LEVEL 8.5 MG/DL (8.5-10.1); CARBON DIOXIDE LEVEL 27 MMOL/L (20-31); CHLORIDE LEVEL 103 MMOL/L (98-107); CREATININE FOR GFR 0.44 MG/DL (0.55-1.30); GLOMERULAR FILTRATION RATE > 60.0 (>60); GLUCOSE, FASTING 86 MG/DL (60-100); POTASSIUM SERUM 3.9 MMOL/L (3.5-5.1); SODIUM LEVEL 136 MMOL/L (136-145); TOTAL PROTEIN 6.7 G/DL (5.7-8.2)
[2023-05-31 22:45] VITALS: BP 105/69; TEMP 98.4; O2SAT 98
== END 2023-05-31 22:59 | disposition home or self-care (01) ==
LOC: M ED 18:20
DX: O99.612 Diseases of the digestive system complicating pregnancy, second trimester (principal); Z3A.23 23 weeks gestation of pregnancy

== ENCOUNTER 2023-06-15 05:31 | Inpatient (IN) | payer OTHER ==
[2023-06-15] VITALS (7 sets, daily range): BP systolic 99–126; BP diastolic 55–66; O2SAT 96
[~2023-06-15] VITALS: Ht 157.5 cm; Wt 65.5 kg
[~2023-06-15 05:31] MED LIST changes: +INFL100I IV; -MIRA1POW3 PO; +MIRA33506 PO; +PRED10TA2
[2023-06-15] MEDS ORDERED: HOME MED LIST COMPLETE! XX SCH (05:55)
[2023-06-15] MEDS ORDERED: TRAM50TA2 PO (06:33)
[2023-06-15] MEDS: MORPHINE 10 MG/ML 1ML VIAL IV PRN ×2 (06:48→16:01)
[2023-06-15 07:01] LABS: HEMATOCRIT 26.7 % (36.0-47.0); HEMOGLOBIN 8.9 g/dl (12.0-15.5); MEAN CORPUSCULAR HEMOGLOBIN 29.5 pg (27.0-33.0); MEAN CORPUSCULAR HGB CONC 33.3 g/dl (32.0-36.5); MEAN CORPUSCULAR VOLUME 88.4 fl (80.0-96.0); PLATELET COUNT, AUTOMATED 363 10^3/uL (150-450); RED BLOOD COUNT 3.02 10^6/uL (4.00-5.40)
[2023-06-15] MEDS: KETOROLAC 30 MG/ML 1ML VIAL IV ONE ×2 (07:19→12:56)
[2023-06-15 07:26] LABS: ALBUMIN 2.4 G/DL (3.2-5.2); ALKALINE PHOSPHATASE 135 U/L (46-116); ALT/SGPT 11 U/L (7.0-40); AST/SGOT < 8 U/L (<34); BILIRUBIN,TOTAL 0.4 MG/DL (0.3-1.2); BLOOD UREA NITROGEN 13 MG/DL (9-23); CALCIUM LEVEL 8.3 MG/DL (8.5-10.1); CARBON DIOXIDE LEVEL 27 MMOL/L (20-31); CHLORIDE LEVEL 101 MMOL/L (98-107); CREATININE FOR GFR 0.46 MG/DL (0.55-1.30); GLOMERULAR FILTRATION RATE > 60.0 (>60); GLUCOSE, FASTING 96 MG/DL (60-100); POTASSIUM SERUM 3.6 MMOL/L (3.5-5.1); SODIUM LEVEL 135 MMOL/L (136-145)
[2023-06-15] MEDS ORDERED: POTASSIUM CHLORIDE INJ 20 MEQ in D5W/0.45% SODIUM CHLORIDE 1,000 ML IV SCH (14:55)
[2023-06-15] MEDS: HYDROCORTISONE 100MG/2ML VIAL IV SCH (15:45)
[2023-06-15] MEDS: KCL 20MEQ IN D5/0.45NS 1000ML 1,000 ML IV SCH (15:48)
[2023-06-15] MEDS: KETOROLAC 30 MG/ML 1ML VIAL IV PRN (20:06)
[2023-06-16 05:49] LABS: HEMATOCRIT 25.8 % (36.0-47.0); HEMOGLOBIN 8.3 g/dl (12.0-15.5); MEAN CORPUSCULAR HEMOGLOBIN 28.3 pg (27.0-33.0); MEAN CORPUSCULAR HGB CONC 32.2 g/dl (32.0-36.5); MEAN CORPUSCULAR VOLUME 88.1 fl (80.0-96.0); PLATELET COUNT, AUTOMATED 315 10^3/uL (150-450); RED BLOOD COUNT 2.93 10^6/uL (4.00-5.40); WHITE BLOOD COUNT 13.8 10^3/uL (4.0-10.0)
[2023-06-16 06:00] VITALS: BP 99/58; O2SAT 97
[2023-06-16 06:14] LABS: ALBUMIN 1.9 G/DL (3.2-5.2); ALKALINE PHOSPHATASE 123 U/L (46-116); ALT/SGPT < 9 U/L (7.0-40); AST/SGOT < 8 U/L (<34); BILIRUBIN,TOTAL 0.6 MG/DL (0.3-1.2); BLOOD UREA NITROGEN < 5 MG/DL (9-23); CALCIUM LEVEL 8.1 MG/DL (8.5-10.1); CARBON DIOXIDE LEVEL 26 MMOL/L (20-31); CHLORIDE LEVEL 104 MMOL/L (98-107); CREATININE FOR GFR 0.45 MG/DL (0.55-1.30); GLOMERULAR FILTRATION RATE > 60.0 (>60); GLUCOSE, FASTING 157 MG/DL (60-100); SODIUM LEVEL 135 MMOL/L (136-145); TOTAL PROTEIN 5.3 G/DL (5.7-8.2)
[2023-06-16] MEDS: ENOXAPARIN 40MG/0.4ML SYRINGE (J1650 PER 10MG) SC SCH (09:13)
[2023-06-16 16:13] LABS: APPEARANCE, URINE CLEAR (CLEAR); BACTERIA, URINE AUTO 2+ (NEGATIVE); BILIRUBIN, URINE AUTO NEGATIVE (NEGATIVE); BLOOD, URINE BLOOD NEGATIVE (NEGATIVE); COLOR, URINE YELLOW (YELLOW); GLUCOSE, URINE (UA) AUTO 3+ mg/dL (NEGATIVE); KETONE, URINE AUTO 1+ mg/dL (NEGATIVE); LEUKOCYTE ESTERASE, URINE AUTO NEGATIVE (NEGATIVE); NITRITE, URINE AUTO NEGATIVE (NEGATIVE); PROTEIN, URINE AUTO 1+ mg/dL (NEGATIVE); RBC, URINE AUTO 0 /HPF (0-3); SPECIFIC GRAVITY URINE AUTO 1.007 (1.002-1.035); SQUAMOUS EPITHELIAL CELL UR AU 2 /HPF (0-6); UROBILINOGEN, URINE AUTO 0.2 mg/dL (0.0-2.0); WBC, URINE AUTO 1 /HPF (0-3)
[2023-06-16 17:07] VITALS: BP 110/63; O2SAT 97
[2023-06-16] MEDS: MULTIVITAMIN -ADULT INJECTION 10 ML, THIAMINE INJection 100 MG, FOLIC ACID 1 MG in NS 1... IV ONE (19:58)
[2023-06-17 05:59] VITALS: BP 107/61; O2SAT 95
[2023-06-17 12:26] LABS: HEMATOCRIT 24.8 % (36.0-47.0); HEMOGLOBIN 8.1 g/dl (12.0-15.5); MEAN CORPUSCULAR HGB CONC 32.7 g/dl (32.0-36.5); MEAN CORPUSCULAR VOLUME 88.9 fl (80.0-96.0); PLATELET COUNT, AUTOMATED 360 10^3/uL (150-450); RED BLOOD COUNT 2.79 10^6/uL (4.00-5.40); WHITE BLOOD COUNT 19.2 10^3/uL (4.0-10.0)
[2023-06-17 12:47] LABS: ALBUMIN 1.6 G/DL (3.2-5.2); ALKALINE PHOSPHATASE 128 U/L (46-116); ALT/SGPT < 9 U/L (7.0-40); AST/SGOT < 8 U/L (<34); BILIRUBIN,TOTAL 0.4 MG/DL (0.3-1.2); BLOOD UREA NITROGEN 7 MG/DL (9-23); CARBON DIOXIDE LEVEL 23 MMOL/L (20-31); CHLORIDE LEVEL 110 MMOL/L (98-107); CREATININE FOR GFR 0.44 MG/DL (0.55-1.30); GLOMERULAR FILTRATION RATE > 60.0 (>60); GLUCOSE, FASTING 131 MG/DL (60-100); POTASSIUM SERUM 3.8 MMOL/L (3.5-5.1); SODIUM LEVEL 139 MMOL/L (136-145); TOTAL PROTEIN 5.1 G/DL (5.7-8.2)
[2023-06-17 18:00] VITALS: BP 110/64; O2SAT 96
[2023-06-17] MEDS: DOCUSATE SODIUM 100MG CAPSULE PO SCH (20:39)
[2023-06-18 06:00] VITALS: BP 112/68; O2SAT 100
[2023-06-18 07:41] LABS: HEMATOCRIT 24.9 % (36.0-47.0); HEMOGLOBIN 8.1 g/dl (12.0-15.5); MEAN CORPUSCULAR HGB CONC 32.5 g/dl (32.0-36.5); MEAN CORPUSCULAR VOLUME 89.2 fl (80.0-96.0); PLATELET COUNT, AUTOMATED 321 10^3/uL (150-450); RED BLOOD COUNT 2.79 10^6/uL (4.00-5.40); WHITE BLOOD COUNT 17.7 10^3/uL (4.0-10.0)
[2023-06-18] MEDS: methylPREDNISolone 40MG 1ML VIAL IV SCH (16:05)
[2023-06-18 18:00] VITALS: BP 106/62; O2SAT 97
[2023-06-18 22:00] VITALS: BP 104/60; O2SAT 94
[2023-06-18 22:45] VITALS: O2SAT 95
[2023-06-18 23:42] VITALS: TEMP 97.8
[2023-06-19 06:05] VITALS: BP 105/65; O2SAT 91
[2023-06-19 14:00] VITALS: BP 111/64; O2SAT 94
[2023-06-19] MEDS: MORPHINE 10 MG/ML 1ML VIAL SC ONE (16:13)
[2023-06-19] MEDS: MORPHINE 4 MG/ML 1ML VIAL IV PRN (16:14)
[2023-06-19] MEDS: traMADol 50 MG TAB PO SCH (16:54)
[2023-06-19 18:00] VITALS: BP 107/61; O2SAT 94
[2023-06-19] MEDS ORDERED: traMADol 50 MG TAB PO SCH (18:00)
[2023-06-20 02:00] VITALS: BP 122/66
[2023-06-20] MEDS ORDERED: CALCIUM CARBONATE 500 MG CHEW U/D PO PRN (05:45)
[2023-06-20 06:00] VITALS: BP 120/74; O2SAT 95
[2023-06-20] MEDS ORDERED: traMADol 50 MG TAB PO SCH (12:00)
[2023-06-20 13:38] LABS: MEAN CORPUSCULAR VOLUME 90.6 fl (80.0-96.0); PLATELET COUNT, AUTOMATED 372 10^3/uL (150-450); RED BLOOD COUNT 2.76 10^6/uL (4.00-5.40); WHITE BLOOD COUNT 13.1 10^3/uL (4.0-10.0)
[2023-06-20] MEDS: traMADol 50 MG TAB PO SCH ×2 (14:11→19:00)
[2023-06-20 18:00] VITALS: BP 121/66; O2SAT 97
[2023-06-20 18:25] VITALS: BP 127/76; O2SAT 89
[2023-06-20] MEDS: predniSONE 20 MG TAB PO SCH (21:56)
[2023-06-20 22:00] VITALS: BP 113/66; O2SAT 95
[2023-06-21] MEDS: MORPHINE 10 MG/ML 1ML VIAL IV PRN (01:11)
[2023-06-21] MEDS: GLYCERIN ADULT SUPP PR PRN (03:12)
[2023-06-21 06:00] VITALS: BP 116/63; O2SAT 95
[2023-06-21 07:37] LABS: HEMATOCRIT 28.2 % (36.0-47.0); MEAN CORPUSCULAR HGB CONC 31.9 g/dl (32.0-36.5); MEAN CORPUSCULAR VOLUME 87.9 fl (80.0-96.0); PLATELET COUNT, AUTOMATED 424 10^3/uL (150-450); RED BLOOD COUNT 3.21 10^6/uL (4.00-5.40); WHITE BLOOD COUNT 13.7 10^3/uL (4.0-10.0)
[2023-06-21] MEDS ORDERED: predniSONE 20 MG TAB PO SCH (09:00)
[2023-06-21 14:00] VITALS: BP 115/66; O2SAT 94
[2023-06-21] MEDS ORDERED: SLF 3 ML SYR IV PRN (17:25)
[2023-06-21 18:00] VITALS: BP 113/67; O2SAT 92
[2023-06-21 20:39] VITALS: BP 119/74
[2023-06-21] MEDS ORDERED: SLF 3 ML SYR IV SCH (22:00)
[2023-06-21 22:14] LABS: HEMATOCRIT 26.6 % (36.0-47.0); HEMOGLOBIN 8.8 g/dl (12.0-15.5); MEAN CORPUSCULAR HEMOGLOBIN 28.9 pg (27.0-33.0); MEAN CORPUSCULAR HGB CONC 33.1 g/dl (32.0-36.5); MEAN CORPUSCULAR VOLUME 87.2 fl (80.0-96.0); PLATELET COUNT, AUTOMATED 384 10^3/uL (150-450); RED BLOOD COUNT 3.05 10^6/uL (4.00-5.40); WHITE BLOOD COUNT 10.5 10^3/uL (4.0-10.0)
[2023-06-21] MEDS ORDERED: OXYTOCIN INJ 10UNITS/ML 1ML VIAL IM PRN (22:20)
[2023-06-21] MEDS ORDERED: CALCIUM GLUCONATE 1,000 MG in D5W MINI-BAG PLUS 100 ML IV PRN (22:20)
[2023-06-21] MEDS ORDERED: OXYTOCIN DRIP 30 UNITS in IV 1 EA IV PRN (22:20)
[2023-06-21] MEDS ORDERED: LIDOCAINE 1% MDV 20ML VIAL INFIL PRN (22:20)
[2023-06-21] MEDS ORDERED: TRANEXAMIC ACID INJection 1,000 MG in NS 100 ML IV PRN (22:20)
[2023-06-21] MEDS ORDERED: CARBOPROST TROMETHAMINE 250 MCG/ML AMP IM PRN (22:20)
[2023-06-21] MEDS ORDERED: METHYLERGONOVINE MALEATE 0.2MG/ML 1ML VIAL IM PRN (22:20)
[2023-06-21 22:26] LABS: INR 1.19; PROTHROMBIN TIME 14.8 SECONDS (12.5-14.5)
[2023-06-21 22:27] LABS: PARTIAL THROMBOPLASTIN TIME 29.7 SECONDS (24.8-34.2)
[2023-06-21] MEDS: MAG Sulf (L&D) 4 GM/100 ML 4 GM in IV 1 EA IV ONE (22:44)
[2023-06-21] MEDS: BETAMETHASONE SOLUSPAN 6MG/ML 5ML VIAL IM SCH (22:44)
[2023-06-21] MEDS: MAG Sulf (OBGYN) 20GM/500ML 20,000 MG in IV 1 EA IV SCH (22:50)
[2023-06-21 23:15] VITALS: BP 124/74; O2SAT 83
== END 2023-06-21 23:45 | disposition short-term general hospital (02) | DRG 832 ==
LOC: M LDO 05:31 → M LDI 14:17 → M OBS 18:10 → M LDI 06-21 20:32
PROVIDERS: ADMIT Specialist; ATTEND Advanced Practice Midwife
DX: O99.612 Diseases of the digestive system complicating pregnancy, second trimester (principal); K50.918 Crohn's disease, unspecified, with other complication; Z3A.26 26 weeks gestation of pregnancy; Z79.52 Long term (current) use of systemic steroids; Z79.899 Other long term (current) drug therapy; O45.92 Premature separation of placenta, unspecified, second trimester

== ENCOUNTER 2023-08-14 11:30 | Outpatient (CLI) | payer OTHER ==
[~2023-08-14] VITALS: Ht 157.5 cm; Wt 61.3 kg
[~2023-08-14 11:30] MED LIST changes: +ACETAMINOPHEN 650MG PO PRIOR TO INFUSION PO ONE; +NS 1,000 ML IV SCH; +TRAM50TA2 PO
[2023-08-14 11:40] VITALS: BP 108/78; O2SAT 100
[2023-08-14] MEDS: INFLIXIMAB BIOSIMILAR 300 MG in NS 220 ML IV ONE (12:07)
[2023-08-14 13:16] VITALS: BP 125/87; O2SAT 98
== END 2023-08-14 13:20 ==
LOC: M INFU 11:30
PROVIDERS: ATTEND Internal Medicine Gastroenterology
DX: K50.90 Crohn's disease, unspecified, without complications (principal)

== ENCOUNTER 2023-11-07 12:56 | Outpatient (CLI) | payer OTHER, SELFPAY ==
[~2023-11-07] VITALS: Ht 157.5 cm; Wt 62.7 kg
[~2023-11-07 12:56] MED LIST changes: -ACETAMINOPHEN 650MG PO PRIOR TO INFUSION PO ONE; -NS 1,000 ML IV SCH
[2023-11-07 13:00] VITALS: BP 129/71; O2SAT 98
[2023-11-07] MEDS ORDERED: NS 1,000 ML IV SCH (13:00)
[2023-11-07] MEDS: ACETAMINOPHEN 650MG PO PRIOR TO INFUSION PO ONE (13:10)
[2023-11-07] MEDS: INFLIXIMAB BIOSIMILAR 300 MG in NS 220 ML IV ONE (13:49)
[2023-11-07 15:05] VITALS: BP 119/79; O2SAT 97
== END 2023-11-07 15:10 ==
LOC: M INFU 12:56
PROVIDERS: ATTEND Internal Medicine Gastroenterology
DX: K50.90 Crohn's disease, unspecified, without complications (principal)

== ENCOUNTER → 2024-01-19 | Outpatient (CLI) | payer OTHER ==
[~2024-01-19] VITALS: Ht 157.5 cm; Wt 64.0 kg
[~2024-01-19] MED LIST changes: +ACETAMINOPHEN 650MG PO PRIOR TO INFUSION PO ONE; -HYOS0.1258 PO; +HYOS0.1289 PO; +NS 1,000 ML IV SCH
[2024-01-19 13:25] VITALS: BP 122/81; O2SAT 96
[2024-01-19] MEDS: INFLIXIMAB BIOSIMILAR 300 MG in NS 220 ML IV ONE (14:02)
[2024-01-19 15:15] VITALS: BP 117/76; O2SAT 99
== END ==
LOC: M INFU 13:19
PROVIDERS: ATTEND Internal Medicine Gastroenterology
DX: K50.90 Crohn's disease, unspecified, without complications (principal)

== ENCOUNTER 2024-03-01 12:20 | Outpatient (CLI) | payer OTHER ==
[~2024-03-01] VITALS: Ht 157.5 cm; Wt 64.0 kg
[~2024-03-01 12:20] MED LIST changes: -ACETAMINOPHEN 650MG PO PRIOR TO INFUSION PO ONE; -NS 1,000 ML IV SCH
[2024-03-01 12:30] VITALS: BP 122/75; O2SAT 98
[2024-03-01] MEDS ORDERED: ACETAMINOPHEN 650MG PO PRIOR TO INFUSION PO ONE (12:30)
[2024-03-01] MEDS: INFLIXIMAB BIOSIMILAR 300 MG in NS 220 ML IV ONE (13:01)
[2024-03-01 13:25] VITALS: BP 134/83; O2SAT 97
[2024-03-01 14:05] VITALS: BP 106/80; O2SAT 99
== END 2024-03-01 14:10 ==
LOC: M INFU 12:20
PROVIDERS: ATTEND Internal Medicine Gastroenterology
DX: K50.90 Crohn's disease, unspecified, without complications (principal)

== ENCOUNTER 2024-04-17 09:37 | Outpatient (CLI) | payer OTHER ==
[~2024-04-17] VITALS: Ht 157.5 cm; Wt 64.0 kg
[2024-04-17] MEDS: ACETAMINOPHEN 650MG PO PRIOR TO INFUSION PO ONE (09:30)
[~2024-04-17 09:37] MED LIST changes: -HYOS0.1289 PO; +HYOS0.1297 PO
[2024-04-17 09:45] VITALS: BP 133/85; O2SAT 98
[2024-04-17] MEDS: INFLIXIMAB BIOSIMILAR 300 MG in NS 220 ML IV ONE (10:42)
[2024-04-17 11:50] VITALS: BP 119/79; O2SAT 100
== END 2024-04-17 11:50 ==
LOC: M INFU 09:37
PROVIDERS: ATTEND Internal Medicine Gastroenterology
DX: K50.90 Crohn's disease, unspecified, without complications (principal)

== ENCOUNTER 2024-05-31 13:00 | Outpatient (CLI) | payer OTHER ==
[~2024-05-31] VITALS: Ht 157.5 cm; Wt 63.6 kg
[~2024-05-31 13:00] MED LIST changes: +ACETAMINOPHEN 650MG PO PRIOR TO INFUSION PO ONE; +NS (Normal Saline) 0.9% 1,000 ML IV SCH
[2024-05-31 13:12] VITALS: BP 120/67; O2SAT 96
[2024-05-31] MEDS: INFLIXIMAB BIOSIMILAR 300 MG in NS 220 ML IV ONE (13:48)
[2024-05-31 14:55] VITALS: BP 117/74; O2SAT 98
== END 2024-05-31 14:55 ==
LOC: M INFU 13:00
PROVIDERS: ATTEND Internal Medicine Gastroenterology
DX: K50.90 Crohn's disease, unspecified, without complications (principal)

== ENCOUNTER 2024-08-30 09:02 | Outpatient (CLI) | payer OTHER ==
[~2024-08-30] VITALS: Ht 157.5 cm; Wt 63.4 kg
[~2024-08-30 09:02] MED LIST changes: -ACETAMINOPHEN 650MG PO PRIOR TO INFUSION PO ONE; -NS (Normal Saline) 0.9% 1,000 ML IV SCH; -PRED50TA PO; +PRED50TA57 PO
[2024-08-30 09:15] VITALS: BP 105/70; O2SAT 97
[2024-08-30] MEDS ORDERED: NS (Normal Saline) 0.9% 1,000 ML IV SCH (09:30)
[2024-08-30] MEDS: INFLIXIMAB BIOSIMILAR 300 MG in NS 220 ML IV ONE (10:00)
[2024-08-30 11:19] VITALS: BP 111/78; O2SAT 100
== END 2024-08-30 11:05 ==
LOC: M INFU 09:02
PROVIDERS: ATTEND Internal Medicine Gastroenterology
DX: K50.90 Crohn's disease, unspecified, without complications (principal)

== ENCOUNTER → 2024-09-12 | Outpatient (REF) | payer OTHER | LOC: M LAB REF 12:02 | PROVIDERS: ATTEND Nurse Practitioner Family | DX: R30.0 Dysuria (principal) ==

== ENCOUNTER 2024-11-29 09:42 | Outpatient (CLI) | payer OTHER ==
[~2024-11-29] VITALS: Ht 157.5 cm; Wt 63.6 kg
[~2024-11-29 09:42] MED LIST changes: +NS (Normal Saline) 0.9% 1,000 ML IV SCH
[2024-11-29 09:45] VITALS: BP 118/74; O2SAT 99
[2024-11-29] MEDS: INFLIXIMAB BIOSIMILAR 300 MG in NS 220 ML IV ONE (10:26)
[2024-11-29] MEDS: ACETAMINOPHEN 650MG PO PRIOR TO INFUSION PO ONE (10:27)
[2024-11-29 11:25] VITALS: BP 112/79; O2SAT 99
== END 2024-11-29 11:30 | disposition home or self-care (01) ==
LOC: M INFU 09:42
PROVIDERS: ATTEND Internal Medicine Gastroenterology
DX: K50.90 Crohn's disease, unspecified, without complications (principal)

== ENCOUNTER 2025-01-10 09:44 | Outpatient (CLI) | payer OTHER ==
[~2025-01-10] VITALS: Ht 157.5 cm; Wt 63.6 kg
[~2025-01-10 09:44] MED LIST changes: -NS (Normal Saline) 0.9% 1,000 ML IV SCH
[2025-01-10 09:50] VITALS: BP 116/72; O2SAT 98
[2025-01-10] MEDS ORDERED: NS (Normal Saline) 0.9% 1,000 ML IV SCH (10:00)
[2025-01-10] MEDS: ACETAMINOPHEN 650MG PO PRIOR TO INFUSION PO ONE (10:54)
[2025-01-10] MEDS: INFLIXIMAB BIOSIMILAR 300 MG in NS 220 ML IV ONE (10:55)
[2025-01-10 12:02] VITALS: BP 132/70; O2SAT 100
== END 2025-01-10 12:02 ==
LOC: M INFU 09:44
PROVIDERS: ATTEND Internal Medicine Gastroenterology
DX: K50.90 Crohn's disease, unspecified, without complications (principal)

== ENCOUNTER 2025-02-25 14:00 | Outpatient (CLI) | payer OTHER ==
[~2025-02-25] VITALS: Ht 152.4 cm; Wt 68.1 kg
[~2025-02-25 14:00] MED LIST changes: +ACETAMINOPHEN 650MG PO PRIOR TO INFUSION PO ONE; +INFLIXIMAB BIOSIMILAR 300 MG in NS 220 ML IV ONE; +NS (Normal Saline) 0.9% 1,000 ML IV SCH
[2025-02-25 14:20] VITALS: BP 113/68; O2SAT 98
[2025-02-25] MEDS ORDERED: NS (Normal Saline) 0.9% 1,000 ML IV SCH (14:30)
[2025-02-25] MEDS: ACETAMINOPHEN 650MG PO PRIOR TO INFUSION PO ONE (14:49)
[2025-02-25] MEDS: INFLIXIMAB BIOSIMILAR 300 MG in NS 220 ML IV ONE (14:49)
== END 2025-02-25 15:58 ==
LOC: M INFU 14:00
PROVIDERS: ATTEND Internal Medicine Gastroenterology
DX: K50.90 Crohn's disease, unspecified, without complications (principal)
CPT/HCPCS: 96413; Q5103